=== PATIENT | female | born 1975 ===

== ENCOUNTER 2019-09-23 19:26 | Emergency (ER) | payer SELFPAY ==
[~2019-09-23] VITALS: Ht 167.6 cm; Wt 59.0 kg
[2019-09-23 19:40] VITALS: BP 97/76
[2019-09-23 20:17] LABS: RAPID INFLUENZA A Negative (Negative); RAPID INFLUENZA B Negative (Negative)
[2019-09-23 20:45] LABS: BASOPHILS # (AUTO) 0.04 x10^3/uL (0-0.1); BASOPHILS % (AUTO) 1 % (0-1); EOSINOPHILS # (AUTO) 0.03 x10^3/uL (0-0.4); EOSINOPHILS % (AUTO) 1 % (1-7); LYMPHOCYTES # (AUTO) 2.48 x10^3/uL (1-3.4); LYMPHOCYTES % (AUTO) 39 % (22-44); MD NO; MEAN CORPUSCULAR HEMOGLOBIN 33.3 pg (27.0-34.8); MEAN CORPUSCULAR HGB CONC 33.1 g/dL (32.4-35.8); MEAN CORPUSCULAR VOLUME 100.8 fL (80-100); MEAN PLATELET VOLUME 7.9 fL (7.4-10.4); MONOCYTES # (AUTO) 0.56 x10^3/uL (0.2-0.8); MONOCYTES % (AUTO) 9 % (2-9); NEUTROPHILS # (AUTO) 3.31 x10^3/uL (1.8-6.8); NEUTROPHILS % (AUTO) 52 % (42-75); PLATELET COUNT 346 x10^3/uL (130-400); RED BLOOD COUNT 4.49 x10^6/uL (3.82-5.3); RED CELL DISTRIBUTION WIDTH 15.7 % (9.6-15.2)
[2019-09-23 20:53] LABS: ANION GAP 7 mmol/L (5-15); CALCIUM 8.6 mg/dL (8.5-10.1); CHLORIDE 108 mmol/L (98-107); CREATININE 0.81 mg/dL (0.55-1.02)
[2019-09-23 20:56] LABS: TROPONIN I < 0.015 ng/mL (0.000-0.045)
--- NOTE | 2019-09-23 21:45 | NUR ---
NIL X 1
--- NOTE | 2019-09-23 22:00 | NUR ---
NIL X 2
--- NOTE | 2019-09-23 22:39 | NUR ---
NIL X 3
== END 2019-09-23 22:55 | disposition left against medical advice (07) ==
LOC: ED 20:26
DX: R11.2 Nausea with vomiting, unspecified (principal); R19.7 Diarrhea, unspecified; R05 Cough; R50.9 Fever, unspecified
CPT/HCPCS: 36415; 71046; 80048; 84484; 85025; 87081; 87400; 87880; 93005; 99285

== ENCOUNTER 2020-05-27 23:11 | Emergency (ER) | payer SELFPAY ==
[~2020-05-27] VITALS: Ht 167.6 cm; Wt 56.8 kg
--- NOTE | 2020-05-28 02:05 | NUR ---
MOLDER LABELS: PT WALKED BACK FROM LOBBY TO ROOM AT THIS TIME.
[2020-05-28] MEDS ORDERED: ALBUTEROL/IPRATROPIUM 2.5MG/0.5MG, 3 ML NPPB ONE (02:30)
[2020-05-28] MEDS ORDERED: ALBUTEROL/IPRATROPIUM 2.5MG/0.5MG, 3 ML ONE (02:32)
--- NOTE | 2020-05-28 02:48 | NUR ---
PT WITH COMPLAINTS OF DIZZINESS "ALMOST EVERY DAY" AND 1 SYNCOPAL EPISODE WHILE AT WORK YESTERDAY.
--- NOTE | 2020-05-28 02:49 | NUR ---
PT PROVIDED BREATHING TREATMENT.
[2020-05-28 02:51] LABS: ALBUMIN 3.4 g/dL (3.4-5.0); ANION GAP 11 mmol/L (5-15); CALCIUM 8.1 mg/dL (8.5-10.1); CHLORIDE 108 mmol/L (98-107); CREATININE 0.59 mg/dL (0.55-1.02)
[2020-05-28 02:55] LABS: TROPONIN I < 0.015 ng/mL (0.000-0.045)
[2020-05-28 03:05] LABS: BASOPHILS % (AUTO) 1 % (0-1); EOSINOPHILS % (AUTO) 1 % (1-7); LYMPHOCYTES % (AUTO) 39 % (22-44); MEAN CORPUSCULAR HEMOGLOBIN 34.6 pg (27.0-34.8); MEAN CORPUSCULAR HGB CONC 33.3 g/dL (32.4-35.8); MEAN PLATELET VOLUME 8.1 fL (7.4-10.4); MONOCYTES % (AUTO) 13 % (2-9); NEUTROPHILS % (AUTO) 46 % (42-75); PLATELET COUNT 213 x10^3/uL (130-400); RED BLOOD COUNT 3.41 x10^6/uL (3.82-5.3); RED CELL DISTRIBUTION WIDTH 15.4 % (9.6-15.2)
[2020-05-28] MEDS ORDERED: POTASSIUM CHLORIDE 20 MEQ TAB.ER.PRT PO ONE (03:30)
[2020-05-28 03:44] LABS: MD SCAN
[2020-05-28] MEDS ORDERED: POTASSIUM CHLORIDE 20 MEQ TAB.ER.PRT ONE (03:59)
[2020-05-28 04:28] VITALS: BP 98/52
== END 2020-05-28 04:31 | disposition home or self-care (01) ==
LOC: ED 05-28 03:12
DX: J44.1 Chronic obstructive pulmonary disease with (acute) exacerbation (principal); R55 Syncope and collapse; F10.120 Alcohol abuse with intoxication, uncomplicated; R94.31 Abnormal electrocardiogram [ECG] [EKG]; F17.210 Nicotine dependence, cigarettes, uncomplicated; Z90.49 Acquired absence of other specified parts of digestive tract; Y90.9 Presence of alcohol in blood, level not specified
CPT/HCPCS: 36415; 71046; 80048; 80307; 82040; 84484; 84703; 85025; 93005; 94640; 99285; 99406; J7512

== ENCOUNTER 2020-08-01 10:18 | Emergency (ER) | payer MEDICAID ==
[~2020-08-01] VITALS: Ht 167.6 cm; Wt 51.3 kg
--- NOTE | 2020-08-01 11:05 | NUR ---
PT AMBULATED TO STEADILY, BACK TO [facility] AWAKE & COMFORTABLE, RESPONDS TO STAFF APPROP, NAD, COMFORT MEASURES PROVIDED, CALL LIGHT WITHIN REACH.
[2020-08-01 11:44] LABS: BASOPHILS % (AUTO) 0 % (0-1); EOSINOPHILS % (AUTO) 2 % (1-7); LYMPHOCYTES % (AUTO) 38 % (22-44); MEAN CORPUSCULAR HEMOGLOBIN 33.7 pg (27.0-34.8); MEAN CORPUSCULAR HGB CONC 33.6 g/dL (32.4-35.8); MEAN PLATELET VOLUME 8.2 fL (7.4-10.4); MONOCYTES % (AUTO) 11 % (2-9); NEUTROPHILS % (AUTO) 50 % (42-75); PLATELET COUNT 137 x10^3/uL (130-400); RED BLOOD COUNT 3.85 x10^6/uL (3.82-5.3)
[2020-08-01 11:51] LABS: MD NO
[2020-08-01 11:53] LABS: ALBUMIN 3.6 g/dL (3.4-5.0); ANION GAP 12 mmol/L (5-15); CALCIUM 8.3 mg/dL (8.5-10.1); CHLORIDE 106 mmol/L (98-107); CREATININE 0.53 mg/dL (0.55-1.02)
[2020-08-01 11:57] LABS: TROPONIN I < 0.015 ng/mL (0.000-0.045)
--- NOTE | 2020-08-01 12:03 | NUR ---
PT SLEEPING ON GURNEY, RESPONDS TO MECHANICAL STIMULI, NAD, COMFORT MEASURES PROVIDED, CALL LIGHT WITHIN REACH.
[2020-08-01] MEDS ORDERED: POTASSIUM CHLORIDE 20 MEQ PACKET ONE (12:22)
[2020-08-01] MEDS ORDERED: POTASSIUM CHLORIDE 10 MEQ TABLET.ER PO ONE (12:30)
[2020-08-01] MEDS ORDERED: POTASSIUM CHLORIDE 20 MEQ PACKET PO ONE (12:30)
[2020-08-01 12:59] VITALS: BP 90/57
[2020-08-01] MEDS ORDERED: POTASSIUM CHLORIDE 20 MEQ TAB.ER.PRT PO ONE (13:00)
== END 2020-08-01 13:04 | disposition home or self-care (01) ==
LOC: ED 12:58
DX: R55 Syncope and collapse (principal); F10.20 Alcohol dependence, uncomplicated; E87.6 Hypokalemia; R42 Dizziness and giddiness; J44.9 Chronic obstructive pulmonary disease, unspecified; Z90.49 Acquired absence of other specified parts of digestive tract; Y90.9 Presence of alcohol in blood, level not specified
CPT/HCPCS: 36415; 71045; 80048; 80320; 82040; 84443; 84484; 85025; 93005; 99285; G0480

== ENCOUNTER 2021-03-26 15:01 | Emergency (ER) | payer MEDICAID ==
[~2021-03-26] VITALS: Ht 167.6 cm; Wt 59.3 kg
[2021-03-26 15:04] VITALS: BP 122/82
[2021-03-26 15:40] LABS: RAPID INFLUENZA A Negative (Negative); RAPID INFLUENZA B Negative (Negative)
[2021-03-26 16:28] LABS: BASOPHILS % (AUTO) 1 % (0-1); EOSINOPHILS % (AUTO) 1 % (1-7); LYMPHOCYTES % (AUTO) 40 % (22-44); MEAN CORPUSCULAR HEMOGLOBIN 31.8 pg (27.0-34.8); MEAN CORPUSCULAR HGB CONC 33.5 g/dL (32.4-35.8); MEAN PLATELET VOLUME 7.6 fL (7.4-10.4); MONOCYTES % (AUTO) 15 % (2-9); NEUTROPHILS % (AUTO) 44 % (42-75); PLATELET COUNT 193 x10^3/uL (130-400); RED BLOOD COUNT 4.49 x10^6/uL (3.82-5.3); RED CELL DISTRIBUTION WIDTH 18.1 % (9.6-15.2)
[2021-03-26 16:38] LABS: ALANINE AMINOTRANSFERASE 32 U/L (12-78); ALBUMIN 3.2 g/dL (3.4-5.0); ANION GAP 11 mmol/L (5-15); CHLORIDE 105 mmol/L (98-107); CREATININE 0.55 mg/dL (0.55-1.02)
[2021-03-26 16:40] LABS: ALKALINE PHOSPHATASE 65 U/L (45-117); BILIRUBIN,TOTAL 0.7 mg/dL (0.2-1.0); TOTAL PROTEIN 7.1 g/dL (6.4-8.2)
--- NOTE | 2021-03-26 17:03 | NUR ---
PT TO RM FROM LOBBY AT THIS TIME
--- NOTE | 2021-03-26 17:09 | NUR ---
IN TO EVAL PT, PT S/O ATTEMPTING TO GO IN , DISCUSSED VISITOR POLICY WITH COVID R/O PTS, NONE ALLOWED AT THIS TIME. PT BECOMES UPSET CUSSING AND SCREAMING THROWS GOWN ON GROUND AND GETS DRESSED AND LEAVES AMA.
== END 2021-03-26 17:36 | disposition left against medical advice (07) ==
LOC: ED 17:30
DX: R06.00 Dyspnea, unspecified (principal); J44.9 Chronic obstructive pulmonary disease, unspecified; Z20.822 Contact with and (suspected) exposure to COVID-19
CPT/HCPCS: 36415; 71046; 80053; 83605; 85025; 87040; 87400; 93005; 99285; U0003; U0005

== ENCOUNTER 2021-03-26 21:36 | Emergency (ER) | payer MEDICAID ==
[~2021-03-26] VITALS: Ht 167.6 cm; Wt 60.4 kg
[2021-03-26 21:43] VITALS: BP 119/76
--- NOTE | 2021-03-27 00:35 | NUR ---
Pt not in lobby.
--- NOTE | 2021-03-27 01:02 | NUR ---
Pt not in lobby when called for room.
--- NOTE | 2021-03-27 01:43 | NUR ---
Pt not in lobby when called for room. LWBS
== END 2021-03-27 01:45 | disposition left against medical advice (07) ==
LOC: ED 03-27 01:00
DX: R06.02 Shortness of breath (principal); Z53.21 Procedure and treatment not carried out due to patient leaving prior to being seen by health care provider